=== PATIENT | male | born 1990 | race Caucasian/White ===

== ENCOUNTER 2020-11-16 00:11 | Emergency (ER) | payer OTHER ==
[~2020-11-16] VITALS: Ht 180.3 cm; Wt 79.4 kg
[2020-11-16] MEDS ORDERED: HYDROCODON-ACE1 EAC7 PO (01:34)
[2020-11-16 02:04] VITALS: BP 129/82
== END 2020-11-16 02:05 | disposition home or self-care (01) ==
LOC: ER 00:11
DX: S43.005A Unspecified dislocation of left shoulder joint, initial encounter (principal); X50.1XXA Overexertion from prolonged static or awkward postures, initial encounter; Y93.89 Activity, other specified; Y92.89 Other specified places as the place of occurrence of the external cause; Y99.8 Other external cause status